=== PATIENT | female | born 1935 | race Caucasian/White ===

== ENCOUNTER 2016-10-01 15:49 | Inpatient (IN) | payer MEDICARE, BC ==
--- NOTE | ~2016-10-01 | HP ---
Unit #: [id number] #: [id number] Patient: JORGE A DIAZ [id number] [address] [place], [place] [address] [id number] MR#: [id number] NAME: JORGE A DIAZ ROOM: 304 Age: 81 Sex: F Admission Date: 10/01/2016 : 1935 Attending Physician: Duc Nguyen M.D. Primary Care Physician: Ha Carcamo M.D. HISTORY AND PHYSICAL CHIEF COMPLAINT Fever, nausea, vomiting, weak, not eating. HISTORY OF PRESENT ILLNESS This is an 81-year-old female who has a past medical history of coronary artery disease, previous non-ST elevation myocardial infarction in 2013, hypertension, history of kidney stones with previous lithotripsy and dyslipidemia. She presented to the emergency room. She said she has been sick since last Tuesday. She has been having some fever, nausea and vomiting. She was diagnosed with gastroenteritis. Eventually she was given Levaquin. She took two doses. She came in today with worsening symptoms of fever, weakness, not eating since Tuesday and was found on CT scan to have 4 mm obstructing stone in the left uterovesical junction with moderate left hydronephrosis with perinephric stranding and low sodium at 125, potassium 3.1. Urinary tract infection, white blood cell count 50-100, and is being admitted. She denies chest pain, diaphoresis. She denies loss of consciousness, headache, blood in the stool, constipation, diarrhea, but she has been having some nausea, vomiting, fever, chills and incontinence of urine. PAST MEDICAL HISTORY 1. History of dyslipidemia. 2. Hypertension. 3. History of (1) requiring lithotripsy in the past. 4. Arthritis with bilateral knee replacement. 5. History of coronary artery disease with previous non-ST elevation myocardial infarction. 6. History of dyslipidemia. PAST SURGICAL HISTORY 1. History of laser lithotripsy. 2. Hysterectomy. 3. Bilateral total knee replacements. SOCIAL HISTORY The patient lives with her . She used to smoke, but she quit many years ago. No alcohol. No illicit drug use. She is retired. FAMILY HISTORY Her mother has a history of coronary artery disease. She has a brother and sister with cancer. ALLERGIES Lipitor, Bactrim, latex, penicillin. Unit #: [id number] #: [id number] Patient: JORGE A DIAZ HOME MEDICATIONS 1. Diovan/hydrochlorothiazide 50/12.5 mg. 2. Levaquin. She has taken two doses. REVIEW OF SYSTEMS Negative except as per history of present illness. PHYSICAL EXAMINATION GENERAL: Elderly female lying in the bed comfortably. Currently not in any distress. She is alert, awake and oriented times three. VITALS: Temperature 100.3, heart rate 111, respiratory rate 18, blood pressure 159/64, oxygen saturation 96% on room air. HEENT: Pupils equal and reactive to light and accommodation. Head is normocephalic, atraumatic. NECK: Supple. No jugular venous distension. LUNGS: Clear to auscultation bilaterally. No rhonchi. No wheezing. HEART: S1 and S2. Regular rate and rhythm. ABDOMEN: Soft, nontender and nondistended. Bowel sounds positive. EXTREMITIES: Inspection normal. No cyanosis, clubbing or edema. NEUROLOGIC: No focal neurologic deficits. SKIN: No rash. PSYCHIATRIC: Normal mood and affect. DIAGNOSTIC STUDIES IMAGING: Chest x-ray no infiltrate. CT of the chest shows obstructing 5 mm stone on the left UVP junction with moderate left hydronephrosis with perinephric stranding. LABORATORY: BNP 60. Urinalysis shows cloudy appearance. White blood cells 50-100. Sodium 125, potassium 3.1, chloride 91, glucose 88, BUN 26, creatinine 1.2. LFTs within normal limits. Lipase 11, amylase 9, lactic acid level 1.3. White blood cell count 8.5, hemoglobin 12, hematocrit 36, platelets 120. Troponin less than 0.05. ASSESSMENT/PLAN 1. Urinary tract infection/pyelonephritis. Will start the patient on IV Levaquin. 2. 5 mm obstructing stone at the left UV junction with moderate hydronephrosis with perinephric stranding. Will ask neurology to evaluate. Keep n.p.o. from midnight. 3. Hyponatremia. IV fluids. Normal saline. 4. Hypokalemia. Replace. 5. Check magnesium level. 6. History of coronary artery disease. 7. Hypertension. 8. History of kidney stone. 9. Dyslipidemia. 10. DVT prophylaxis. Will place the patient on Lovenox. Dictated by Mike Rubi M.D. RKG/gz TD: 10/02/2016 09:22 Unit #: [id number] #: [id number] Patient: JORGE A DIAZ JOB #: [id number] HISTORY AND PHYSICAL Page 1 of 1 X X HISTORY AND PHYSICAL
--- NOTE | ~2016-10-01 | CT4 ---
[facility] A Service of [facility] & [facility] RADIOLOGY TEXT RESULTS PATIENT: JORGE A DIAZ LOCATION: [facility] 304-01 : 36 UNIT #: [id number] AGE: [address]: Duc Nguyen MD SEX: F ORDER DR: [id number] [facility] [address] [facility]. [place], [place] [address] [id number] I MR#: [id number] Acc #: [id number] NAME: JORGE A DIAZ : 1935 SEX: F STUDY DATE/TIME: 10/01/2016 19:55 UNIT: CEDOF ROOM: 37566 STUDY DESCRIPTION: CT Abd and Pelv Wo Cont Attending Physician: Duc Nguyen M.D. Ordering Physician: Maira Quinn M.D. Primary Care Physician: Ha Carcamo M.D. MEDICAL IMAGING REPORT This report is preliminary unless electronic signature is present EXAM CT abdomen and pelvis without contrast. HISTORY Fever for 3 days. Left lower quadrant pain. TECHNIQUE This CT exam was performed with one or more of the following radiation dose reduction techniques: automatic exposure control, adjustment of mA and/or kV according to patient size, and iterative reconstruction. FINDINGS CT abdomen and pelvis was performed without contrast. CT ABDOMEN: Mild subsegmental atelectasis in the posterior and inferior left lower lobe and small calcified pleural plaques in the posterior lung bases bilaterally. Small hiatal hernia. Marked left hydronephrosis and moderate left perinephric stranding and moderate left ureteral dilatation. 3 mm nonobstructing stones in the upper and lower poles of the right kidney. 2 mm nonobstructing stones in the lower pole left kidney. Very small pericardial effusion. Mild gallbladder distension. The liver, and spleen are unremarkable. Generalized pancreatic parenchymal atrophy. The adrenal glands are normal. No bowel dilatation. Normal caliber abdominal aorta. CT PELVIS: Normal appendix. Moderate left ureteral dilatation down to the ureterovesical junction where there is a 5 mm obstructing stone. Hysterectomy. Mild edema or inflammatory stranding in the left iliac fossa. No free fluid. No bowel dilatation. IMPRESSION [facility] A Service of [facility] & [facility] RADIOLOGY TEXT RESULTS PATIENT: JORGE A DIAZ LOCATION: [facility] 304-01 : 36 UNIT #: [id number] AGE: [address]: Duc Nguyen MD SEX: F ORDER DR: 1. 5 mm obstructing stone at the left ureterovesical junction causing marked left hydronephrosis and moderate left ureteral dilatation and moderate left perinephric stranding. 2. No acute findings in the remainder of the abdomen or pelvis. 3. Normal appendix. 4. Small nonobstructing stones in both kidneys. Dictated by... Segun Nichole M.D. THIS IS AN ELECTRONICALLY VERIFIED REPORT Segun Nichole M.D. at 10/02/2016 11:43 AM HUMAIRA/jose TD: 10/01/2016 23:38 JOB #: [id number] MEDICAL IMAGING REPORT Page 1 of 1 COPY
--- NOTE | ~2016-10-01 | CO ---
Unit #: [id number] #: [id number] Patient: JORGE A LUIS [id number] [address] [place], [place] [address] [id number] I MR#: [id number] NAME: JORGE A LUIS ROOM: 304 Age: 81 Sex: F Admission Date: 10/01/2016 : 1935 Attending Physician: Leandra Galloway M.D. Primary Care Physician: Ha Carcamo M.D. Consultation Date: 10/02/2016 CONSULTATION REPORT REASON FOR CONSULTATION Left ureteral calculus, hydronephrosis and flank pain. HISTORY OF PRESENT ILLNESS Ms. Luis is an 81-year-old female who has been confused since Tuesday of this week. She was seen by her primary care physician and treated with antibiotics for a presumptive gastroenteritis. She failed to improve. Presented to the emergency room where a CT scan revealed a 5 mm left UVJ calculus with hydronephrosis and stranding. She has a normal white count and a normal lactic acid, however, she was running a fever and is confused. Her sodium level is slightly low, therefore she was admitted for medical management resuscitation overnight and presents this morning for the consultation and is being added onto the operating room for a stent placement. PAST MEDICAL HISTORY Significant for: 1. History of stones 10 years ago taken care of by Dr. Sanderson. 2. Hypertension for which she is on oral medications at home. 3. History of childbirth x4. 4. Hysterectomy. 5. Stone procedure as outlined above. MEDICATIONS HERE 1. Levaquin. 2. IV fluid resuscitation. ALLERGIES No known drug allergies. SOCIAL HISTORY She does live at home with her family who helps take care of her. She has some confusion, unknown level of dementia. The history is obtained from her who is present today as well as her daughter. Negative for tobacco or alcohol. FAMILY HISTORY Negative for urologic disease. Negative for heart disease. Positive for hypertension. REVIEW OF SYSTEMS Negative except per history of present illness for the other 10-point review. Unit #: [id number] #: [id number] Patient: JORGE A LUIS PHYSICAL EXAMINATION VITAL SIGNS: She is currently afebrile with normal vital signs. GENERAL: She is oriented x3. HEENT: Extraocular movements are intact. NECK: Supple. Trachea is midline. LUNGS: Respirations are nonlabored. No audible wheezing. CHEST: Palpation is normal and there is no JVD. ABDOMEN: Currently soft. Nontender, nondistended. No CVA or suprapubic tenderness. EXTREMITIES: Without clubbing, cyanosis, or edema. NEUROLOGIC: Afocal. Normal sensation to light touch. ASSESSMENT 5 mm left ureterovesical calculus with hydronephrosis and urinary tract infection. PLAN Add on for an urgent cystoscopy with ureteral stent placement. Once the stent is placed, we will arrange followup in the future with Dr. Sanderson for definitive stone management after her infection has cleared. Dictated by... Rudy Ness/kt TD: 10/03/2016 21:58 JOB #: [id number] CONSULTATION REPORT Page 1 of 1 X Bora Forde MD X CONSULTATION REPORT
--- NOTE | ~2016-10-01 | DS ---
Unit #: [id number] #: [id number] Patient: JORGE A DIAZ [id number] [address] [address] [id number] I MR#: [id number] NAME: JORGE A DIAZ ROOM: 304 Age: 81 Sex: F Admission Date: 10/01/2016 : 1935 Discharge Date: Attending Physician: Leandra Galloway M.D. Primary Care Physician: Ha Carcamo M.D. DISCHARGE SUMMARY DISCHARGE DIAGNOSES 1. Left ureteral calculus and left hydronephrosis. 2. Urinary tract infection, culture negative. 3. Supraventricular tachycardia. 4. Sepsis, present on admission. 5. Mild hypernatremia. 6. Hypokalemia. 7. History of hyperlipidemia. 8. History of kidney stones requiring lithotripsy. 9. Arthritis with bilateral knee replacement. 10. History of coronary artery disease with non-ST myocardial infarction elevation. CONSULTATIONS 1. Dr. Forde. 2. Dr. Loja. PROCEDURES Patient had cystoscopy with left ureteral stent placement. LAB DATA Urine culture is negative. Sodium 131, potassium 3.7, creatinine 1.1, WBC 6.8, hemoglobin 12.1. Blood culture is negative. CT abdomen and pelvis shows 5 mm obstructing left ureterovesical junction stone causing a left hydronephrosis. TSH 2.21, BNP 60. ALLERGIES Penicillin, carbamates, sulfamethoxazole, trimethoprim, adhesive, atorvastatin, latex. DISCHARGE MEDICATIONS 1. Tylenol 650 q.6 p.r.n. fever. 2. Lortab 5 mg q.6 p.r.n. pain. 3. Levaquin 500 p.o. daily for five more days. 4. Metoprolol 12.5 p.o. b.i.d. 5. Atorvastatin 40 daily. 6. Aspirin 81 daily. Unit #: [id number] #: [id number] Patient: JORGE A DIAZ HOSPITALIZATION COURSE 81-year-old admitted because of abdominal pain. Left obstructing kidney stone with left hydronephrosis: Patient is seen by urology. Patient has cystoscopy and stent placement. Currently, pain is better. No hematuria. Continue with Lortab and follow with Dr. Forde in one week time, or Dr. Sanderson in one week time. Supraventricular tachycardia, likely from sepsis: Patient was seen by cardiology. They recommended metoprolol, asymptomatic. Follow with cardiology as recommended. Urinary tract infection with sepsis, present on admission: Patient received Levaquin. Continue with Levaquin for five more days. Mild hyponatremia, stable. Patient will be discharged home. Follow with family physician in one week time, follow with Dr. Sanderson in one week time, follow with Dr. Loja as advised. Dictated by... Rudy Abarca/katharine TD: 10/03/2016 11:44 JOB #: [id number] DISCHARGE SUMMARY Page 1 of 1 X Leandra Galloway MD DISCHARGE SUMMARY
--- NOTE | ~2016-10-01 | CO ---
Unit #: [id number] #: [id number] Patient: JORGE A DIAZ [id number] [address] [place], [place] [address] [id number] I MR#: [id number] NAME: JORGE A DIAZ ROOM: 304 Age: 81 Sex: F Admission Date: 10/01/2016 : 1935 Attending Physician: Leandra Galloway M.D. Primary Care Physician: Ha Carcamo M.D. Consultation Date: 10/03/2016 CONSULTATION REPORT REASON FOR CONSULTATION Nonsustained supraventricular tachycardia. HISTORY OF PRESENT ILLNESS The patient is a white 81-year-old, female, known to Dr. Loja. The patient had a cath back in 02/2014 which showed 3-vessel disease, 75% mid LAD, 60% to 70% stenosis in the left circumflex, and 70% stenosis in the mid RCA. Also in 02/2014, the patient had a 2D echocardiogram which showed LVEF 55% with mild MR and TR. Additional past medical history includes hypertension, hyperlipidemia, non-STEMI, history of lithotripsy, and reformed tobaccoism. When the patient presented to the emergency department, states that she has been sick since for over 5 days. She has been having some fever, nausea, and vomiting. She initially was diagnosed with gastroenteritis and given Levaquin, she took 2 doses, but then came in on 10/01/2016 feeling worse with worsening symptoms of fever and weakness. On a CT scan, she was found to have a 4 mm obstructing stone in the left uterovesical junction with moderate left hydronephrosis with perinephric stranding and low sodium. She was treated for urinary tract infection at that time, and she was admitted for further workup. On 10/02/2016, the patient underwent a cystoscopy and left stent placement. The patient tolerated the procedure. The patient has been treated with IV Levaquin. Today, Cardiology was consulted for non SVT. The patient had a 20-beat run of a non SVT. She denies any shortness of breath or chest pain. PAST MEDICAL HISTORY 1. Cath from 02/2014. She has 3-vessel coronary artery disease 70% to 75% stenosis in the mid LAD, 60% to 70% stenosis in the circumflex and 70% stenosis in the mid RCA. 2. Echo from 02/2014 shows LVEF 55%, mild MR and TR. 3. Hypertension. 4. Hyperlipidemia. 5. Tonsillectomy. 6. Reformed tobaccoism. PAST SURGICAL HISTORY 1. History of laser lithotripsy. 2. Hysterectomy. 3. Bilateral total knee replacement. ALLERGIES Unit #: [id number] #: [id number] Patient: JORGE A DIAZ Include Lipitor, Bactrim, Lasix, and penicillin. HOME MEDICATIONS Diovan/hydrochlorothiazide 50/12.5 mg p.o. daily and aspirin 81 mg p.o. daily. FAMILY HISTORY The patient denies any family history of coronary artery disease. She has a brother and sister had cancer. SOCIAL HISTORY The patient lives with her . She used to smoke and endorses that she quit many years ago. She denies alcohol or illicit drug abuse. She is retired. REVIEW OF SYSTEMS A 10-point review of systems has been done and is considered otherwise negative unless indicated in the HPI. PHYSICAL EXAMINATION GENERAL: The patient is awake and alert, in no acute distress. VITAL SIGNS: Temperature 98.1, heart rate 81, respirations 18, blood pressure 116/57. She is oxygenating 98% on room air. HEENT: Head is atraumatic and normocephalic. Pupils are equal, round, reactive. Extraocular movements are intact. No discharge from ears or nares. NECK: Supple. Trachea is midline. Normal carotid upstrokes. No thyromegaly or lymphadenopathy is appreciated. CHEST: Lungs are clear to auscultation bilaterally. No wheezes, rales, or rhonchi. CARDIOVASCULAR: S1, S2. Regular rate and rhythm. No murmurs, rubs, or gallops appreciated. ABDOMEN: Soft, nontender, nondistended. Bowel sounds are positive in all 4 quadrants. SKIN: Appears to be warm, dry, and intact. No unusual rashes or lesions. EXTREMITIES: No clubbing, edema, or cyanosis. NEUROLOGIC: The patient is alert and oriented x4. She is pleasant, conversant. No focal deficits. Cranial nerves II through XII appear to be intact. DIAGNOSTIC STUDIES IMAGING STUDIES: Chest x-ray shows no infiltrate. CT shows obstructing 5-mm stone on the left UVP junction with moderate left hydronephrosis with perinephritic stranding. LABORATORY RESULTS: White blood cells 6.8, hemoglobin 12.1, hematocrit 35, platelets 113. Sodium 131, potassium 3.7, chloride 102, CO2 of 22, BUN 9, creatinine 1.1, glucose 103. ASSESSMENT 1. Paroxysmal supraventricular tachycardia (atrial tachycardia with one-to-one atrioventricular conduction. 2. 3-vessel coronary artery disease, 2004. 3. Hypertension. 4. Hyperlipidemia. 5. Left uterovesical junction calculus, status post cystoscopy. 6. Stent placement. Unit #: [id number] #: [id number] Patient: JORGE A DIAZ PLAN The patient will need to follow up with Dr. Loja in 6 months. We will start the patient on metoprolol 12.5 mg p.o. b.i.d. We will ask the patient to have her aspirin and Lipitor resume. She may be discharged. Dictated by... Yin Nguyen A.P.R.N. for Yordy Loja M.D. AM/larissa TD: 10/04/2016 13:32 JOB #: [id number] CONSULTATION REPORT Page 1 of 1 X Yin Nguyen APRN X CONSULTATION REPORT
--- NOTE | ~2016-10-01 | OR ---
Unit #: [id number] #: [id number] Patient: JORGE A DIAZ [id number] [address] [place], [place] [address] [id number] I MR#: [id number] NAME: JORGE A DIAZ ROOM: [facility] Date of Procedure: 10/02/2016 Admission Date: 10/01/2016 Surgeon: Bora Forde M.D. : 1935 Attending Physician: Duc Nguyen M.D. Primary Care Physician: Ha Carcamo M.D. OPERATIVE REPORT PREOPERATIVE DIAGNOSES 1. Left 5 mm ureterovesical junction calculus. 2. Hydronephrosis. 3. Urinary tract infection. POSTOPERATIVE DIAGNOSES 1. Left 5 mm ureterovesical junction calculus. 2. Hydronephrosis. 3. Urinary tract infection. PROCEDURES PERFORMED 1. Cystoscopy. 2. Left ureteral stent placement. ANESTHESIA General. COMPLICATIONS None. SPECIMEN None. ESTIMATED BLOOD LOSS None. INDICATION AND CONSENT This is an 81-year-old female patient of Dr. Jonathan Sanderson with the above-noted complaint. She presents for ureteral stent placement for decompression of the collecting system. DESCRIPTION OF PROCEDURE After general anesthesia was obtained, the patient was prepped and draped in the lithotomy position in a standard fashion. Panendoscopy revealed no evidence for tumor, stone, or foreign body throughout the bladder or urethral mucosa. Ship'S Officer fluoroscopic imaging revealed residual contrast within the bowel, which makes the distal ureter difficult to assess. The calculus was therefore not easily identified by fluoroscopy imaging at this time. A guidewire was manipulated into the collecting system under fluoroscopic guidance, and a 6-Mozambican x 22 cm stent was then placed over the wire and coiled within the renal pelvis and bladder under fluoroscopic and cystoscopic guidance respectively. It was notable that upon placement Unit #: [id number] #: [id number] Patient: JORGE A DIAZ of the wire, there was high-pressure cloudy urine noted to be exiting the collecting system. She tolerated the procedure well, was awakened, and transported to the post anesthesia care unit in stable condition. Dictated by... Rudy Ness/larissa TD: 10/02/2016 11:45 JOB #: [id number] OPERATIVE REPORT Page 1 of 1 X Bora Forde MD PROCEDURE OPERATIVE NOTE
--- NOTE | ~2016-10-01 | CR72 ---
[facility] A Service of [facility] & [facility] RADIOLOGY TEXT RESULTS PATIENT: JORGE A DIAZ LOCATION: [facility] [id number] : 36 UNIT #: [id number] AGE: [address]: Duc Nguyen MD SEX: F ORDER DR: [id number] [facility] [address] [facility]. [place], [place] [address] [id number] MR#: [id number] Acc #: [id number] NAME: JORGE A DIAZ : 1935 SEX: F STUDY DATE/TIME: 10/01/2016 16:39 UNIT: [facility] ROOM: STUDY DESCRIPTION: CR Chest Single View Portable Attending Physician: Maira Quinn M.D. Ordering Physician: Maira Quinn M.D. Primary Care Physician: Ha Carcamo M.D. MEDICAL IMAGING REPORT This report is preliminary unless electronic signature is present EXAM Portable chest HISTORY Fever, shortness of air. Nausea for 4 days. FINDINGS Mild patchy subsegmental infiltrate or atelectasis in the retrocardiac left lower lobe. Probable minimal left pleural effusion. No infiltrates in the remainder of the lungs. Mild degenerative changes in both shoulders and in the thoracic spine. IMPRESSION Mild subsegmental probable atelectasis or infiltrate in the retrocardiac left lower lobe with minimal probable left pleural effusion. Remainder the lungs are clear. Dictated by... Segun Nichole M.D. THIS IS AN ELECTRONICALLY VERIFIED REPORT Segun Nichole M.D. at 10/01/2016 11:11 PM HUMAIRA/marybeth TD: 10/01/2016 21:36 JOB #: [id number] MEDICAL IMAGING REPORT Page 1 of 1 COPY
[~2016-10-01 15:49] MED LIST: ACETAMINOPHEN PO; ASPIRIN81 M2 PO; ATARAX PO; ATENOLOL25 MG PO; AUGMENTIN PO; BIOTIN PO; CEPHALEXIN250 MG PO; DETROL PO; DIOVAN PO; DISCONTINUED MED; FISH OIL 1,0001 CA2 PO; KEFLEX250 M1 PO; KLOR-CON PO; LAMISIL PO; LEVAQUIN PO; LIPITOR PO; LISINOPRIL2.5 MG PO; LORTAB 7.5-5001 TAB PO; MACRODANTIN PO; NORVASC PO; PERIACTIN4 M1 PO; PLAVIX PO; TERBINAFINE (L250 M1 PO; VITAMIN C1000 M2 PO; VITAMIN D31000 UNI1 PO; WELCHOL625 MG PO; [UNRECOGNIZED DRUG - CODE] PO
[2016-10-01 16:59] LABS: POC - CKMB 2.5 ng/mL (0.0-7.9); POC - TROPONIN <0.05 ng/mL (<=0.05)
[2016-10-01 17:10] LABS: BASOPHIL% 0.1 % (0-2.5); EOSINOPHIL% 0.5 % (0.0-7.0); HEMATOCRIT 36.3 % (35.0-45.0); HEMOGLOBIN 12.1 gm/dL (12.0-16.0); LYMPHOCYTE# 0.7 X10e3 (1.0-3.5); MEAN CELL VOLUME 95.5 FL (83-96); MEAN CORPUSCULAR HEMOGLOBIN 31.9 PG (28-34); MEAN CORPUSCULAR HGB CONC 33.4 g/dL (30-36); MEAN PLATELET VOLUME 8.5 FL (6.5-11.5); MONOCYTE# 0.5 X10e3 (0-1.0); MONOCYTE% 5.4 % (3.0-12.0); NEUTROPHIL# 7.3 X10e3 (1.5-7.1); PLATELET COUNT 120 X10e3 (140-420); RED CELL DISTRIBUTION WIDTH 13.4 % (11.0-15.5); WHITE BLOOD COUNT 8.5 X10e3 (4.0-10.5)
[2016-10-01 17:12] LABS: DIFF IND NO
[2016-10-01 17:19] LABS: URINE SOURCE CLEAN CATCH
[2016-10-01 17:26] LABS: ALBUMIN SERUM 3.4 g/dL (3.5-5.0); BILIRUBIN, DIRECT 0.5 mg/dL (0.0-0.2); BILIRUBIN,INDIRECT 1.1 mg/dL (0.0-0.9); BILIRUBIN,TOTAL 1.6 mg/dL (0.2-2.0); BUN/CREATININE RATIO 21.66; CALCIUM SERUM 8.2 mg/dL (8.4-10.2); CREATININE SERUM 1.2 mg/dL (0.6-1.4); GLOM FILT RATE Estimated 42.7 mL/min (>60); POTASSIUM 3.1 mmol/L (3.5-5.1); PROTEIN TOTAL SERUM 6.7 g/dL (6.0-8.3)
[2016-10-01 17:29] LABS: URINE APPEARANCE CLOUDY; URINE BILIRUBIN NEG (NEG); URINE BLOOD 2+ (NEG); URINE COLOR YELLOW; URINE GLUCOSE NEG (NEG); URINE KETONE 1+ (NEG); URINE LEUKOCYTE ESTERASE 2+ (NEG); URINE NITRATE NEG (NEG); URINE PROTEIN 3+ (NEG); URINE SPECIFIC GRAVITY 1.016 (1.003-1.035); URINE UROBILINOGEN 0.2 MG/DL (NEG)
[2016-10-01 17:32] LABS: CULTURE INDICATED? YES; URINE BACTERIA AUWI NEG (NEGATIVE); URINE SQUAMOUS EPITHELIAL CELL MOD /[HPF]; UWBCS1 AUWI 50-100 (0-5)
[2016-10-02 01:44] LABS: BUN/CREATININE RATIO 21.66; CALCIUM SERUM 8.1 mg/dL (8.4-10.2); CREATININE SERUM 1.2 mg/dL (0.6-1.4); GLOM FILT RATE Estimated 42.7 mL/min (>60); MAGNESIUM 2.1 mg/dL (1.6-3.0); POTASSIUM 3.2 mmol/L (3.5-5.1)
[2016-10-02 06:58] LABS: BASOPHIL% 0.2 % (0-2.5); EOSINOPHIL% 0.1 % (0.0-7.0); HEMATOCRIT 34.5 % (35.0-45.0); HEMOGLOBIN 11.7 gm/dL (12.0-16.0); LYMPHOCYTE# 0.7 X10e3 (1.0-3.5); LYMPHOCYTE% 9.7 % (17.0-45.0); MEAN CELL VOLUME 95.9 FL (83-96); MEAN CORPUSCULAR HEMOGLOBIN 32.6 PG (28-34); MEAN PLATELET VOLUME 8.2 FL (6.5-11.5); MONOCYTE# 0.5 X10e3 (0-1.0); MONOCYTE% 6.8 % (3.0-12.0); NEUTROPHIL# 5.9 X10e3 (1.5-7.1); NEUTROPHIL% 83.2 % (40-75); PLATELET COUNT 105 X10e3 (140-420); RED CELL DISTRIBUTION WIDTH 13.5 % (11.0-15.5); WHITE BLOOD COUNT 7.1 X10e3 (4.0-10.5)
[2016-10-02 07:03] LABS: DIFF IND NO
[2016-10-03 05:36] LABS: HEMATOCRIT 35.5 % (35.0-45.0); HEMOGLOBIN 12.1 gm/dL (12.0-16.0); MEAN CELL VOLUME 96.3 FL (83-96); MEAN CORPUSCULAR HEMOGLOBIN 32.7 PG (28-34); MEAN PLATELET VOLUME 8.7 FL (6.5-11.5); RED BLOOD COUNT 3.69 X10e (3.90-5.30); WHITE BLOOD COUNT 6.8 X10e3 (4.0-10.5)
[2016-10-03 06:15] LABS: BUN/CREATININE RATIO 17.27; CALCIUM SERUM 8.1 mg/dL (8.4-10.2); CREATININE SERUM 1.1 mg/dL (0.6-1.4); GLOM FILT RATE Estimated 47.4 mL/min (>60); POTASSIUM 3.7 mmol/L (3.5-5.1)
[2016-10-03] MEDS ORDERED: LORTAB 5-325 M1 EACH PO (12:04)
[2016-10-03] MEDS ORDERED: LEVAQUIN PO (12:05)
[2016-10-03] MEDS ORDERED: LOPRESSOR PO (12:06)
[2016-10-03] MEDS ORDERED: LIPITOR PO (12:06)
[2016-10-03] MEDS ORDERED: ACETAMINOPHEN650 M4 PO (12:10)
[2016-10-03] MEDS ORDERED: METOPROLOL TAR25 MG PO (12:26)
[2016-10-03] MEDS ORDERED: ASPIRIN81 M2 PO (12:27)
== END 2016-10-03 14:35 | disposition home or self-care (01) | DRG 872 ==
LOC: CED 15:49 → CEDOF 22:00 → C3A PCU 10-02 02:00 → CEDOF 10-02 02:00 → C3A PCU 10-02 02:00
PROVIDERS: Emergency Medicine; Internal Medicine; Urology
PROC: 0T778DZ Dilation of Left Ureter with Intraluminal Device, Via Natural or Artificial Opening Endoscopic (ICD-10-PCS; principal; 2016-10-02 09:00)
DX: A41.9 Sepsis, unspecified organism (principal); N13.2 Hydronephrosis with renal and ureteral calculous obstruction; N39.0 Urinary tract infection, site not specified; E87.1 Hypo-osmolality and hyponatremia; N12 Tubulo-interstitial nephritis, not specified as acute or chronic; I47.1 Supraventricular tachycardia; E87.6 Hypokalemia; I10 Essential (primary) hypertension; E78.5 Hyperlipidemia, unspecified; Z88.0 Allergy status to penicillin; Z91.040 Latex allergy status; I08.1 Rheumatic disorders of both mitral and tricuspid valves; Z87.891 Personal history of nicotine dependence; Z90.710 Acquired absence of both cervix and uterus; Z96.653 Presence of artificial knee joint, bilateral; I25.119 Atherosclerotic heart disease of native coronary artery with unspecified angina pectoris; I25.2 Old myocardial infarction
CPT/HCPCS: 36415; 51701; 71010; 74176; 80048; 80076; 81003; 82150; 82553; 83605; 83690; 83735; 83880; 84132; 84443; 84484; 85025; 85027; 87040; 87086; 96361; 96365; 96375; 99285; C2617; C9113; J1650; J1956; J2405; J3010